=== PATIENT | male | born 1980 | race Caucasian/White ===

== ENCOUNTER 2020-06-04 07:34 | Emergency (ER) | payer OTHER ==
[2020-06-04] MEDS ORDERED: ONDANSETRON 4 MG/2 ML VIAL IVP STA (07:55)
[2020-06-04] MEDS ORDERED: SODIUM CHLORIDE 0.9% 1,000 ML IV STA (07:55)
[2020-06-04 08:18] LABS: BASOPHILS # (AUTO) 0.1 10^3/uL (0.0-0.1); EOSINOPHILS # (AUTO) 0.3 10^3/uL (0.0-0.7); EOSINOPHILS % (AUTO) 3.2 %; HGB - HEMOGLOBIN 14.5 g/dL (14.0-18.0); LYMPHOCYTES # (AUTO) 2.1 10^3/uL (1.5-3.5); LYMPHOCYTES % (AUTO) 21.6 %; MEAN CORPUSCULAR HEMOGLOBIN 31.8 pg (27.0-31.0); MEAN CORPUSCULAR HGB CONC 32.4 g/dL (32.0-36.0); MEAN PLATELET VOLUME 9.8 fL (7.4-11.4); MONOCYTES % (AUTO) 9.9 %; NEUTROPHILS # (AUTO) 6.3 10^3/uL (1.5-6.6); NEUTROPHILS % (AUTO) 63.7 %; PLT - PLATELET COUNT 216 10^3/uL (130-450); RED BLOOD COUNT 4.56 10^6/uL (4.70-6.10); RED CELL DISTRIBUTION WIDTH 13.3 % (12.0-15.0); WHITE BLOOD COUNT 9.9 x10^3/uL (4.8-10.8)
[2020-06-04 08:31] LABS: ALBUMIN 4.5 g/dL (3.2-5.5); ALBUMIN/GLOBULIN RATIO 1.6 (1.0-2.2); BILIRUBIN,TOTAL 0.4 mg/dL (0.2-1.0); CALCIUM 9.2 mg/dL (8.5-10.3); CREATININE 0.7 mg/dL (0.6-1.2); TOTAL PROTEIN 7.4 g/dL (6.7-8.2)
--- NOTE | 2020-06-04 08:36 | ED Physician Documentation ---
PD HPI NVD - Stated complaint Stated Complaint: VOMITING - Chief complaint Chief Complaint: Abd Pain - History obtained from History obtained from: Patient - History of Present Illness Timing - onset: Enter time (0200) Timing - duration: Hours Timing - details: Abrupt onset, Still present Associated symptoms: No: Fever, Abdominal pain, Chest pain Contributing factors: Bad food (suspected tomato soup and grilled cheese). No: Sick contact Improved by: Laying still, Vomiting Similar symptoms before: Has not had sx before Recently seen: Not recently seen - Additonal information Additional information: Previously well 39-year-old male was in his quarters last night when he began to get ill with nausea vomiting and then eventually diarrhea. He has been up all night with vomiting he said violent vomiting he had tomato soup and grilled cheese last night for dinner he ate alone and developed illness within hours. Review of Systems Constitutional: denies: Fever, Chills, Myalgias Eyes: denies: Decreased vision Ears: denies: Ear pain Nose: denies: Rhinorrhea / runny nose, Congestion Throat: denies: Sore throat Cardiac: denies: Chest pain / pressure Respiratory: denies: Dyspnea, Cough GI: reports: Nausea, Vomiting, Diarrhea. denies: Abdominal Pain : denies: Dysuria, Frequency PD PAST MEDICAL HISTORY - Past Medical History Past Medical History: Yes Psych: Anxiety - Past Surgical History Past Surgical History: No - Present Medications Home Medications: Ambulatory Orders Medication Instructions Recorded Confirmed Escitalopram [Lexapro] 1 tab PO DAILY 06/04/20 06/04/20 Gabapentin [Neurontin] 1 tab PO DAILY 06/04/20 06/04/20 Ondansetron Odt [Zofran] 4 mg TL Q6H PRN #10 tablet 06/04/20 traZODone [Desyrel] 1 tab PO DAILY PM PRN 06/04/20 06/04/20 - Allergies Allergies/Adverse Reactions: Allergies Allergy/AdvReac Type Severity Reaction Status Date / Time No Known Drug Allergies Allergy Verified 06/04/20 07:47 - Social History Does the pt smoke?: No Smoking Status: Never smoker PD ED PE NORMAL - Vitals Vital signs reviewed: Yes (hypertensive) - General General: Alert and oriented X 3, No acute distress, Well developed/nourished - HEENT HEENT: Atraumatic, PERRL, EOMI - Neck Neck: Supple, no meningeal sign, No bony TTP - Cardiac Cardiac: RRR, No murmur - Respiratory Respiratory: No respiratory distress, Clear bilaterally - Abdomen Abdomen: Normal bowel sounds, Soft, Non tender, Non distended, No organomegaly - Back Back: No CVA TTP, No spinal TTP - Derm Derm: Normal color, Warm and dry, No rash - Extremities Extremities: No deformity, No edema - Neuro Neuro: Alert and oriented X 3, exterior designer 2-12 intact, No motor deficit, No sensory deficit, Normal speech Eye Opening: Spontaneous Motor: Obeys Commands Verbal: Oriented GCS Score: 15 - Psych Psych: Normal mood, Normal affect Results - Vitals Vitals: Vital Signs - 24 hr 06/04/20 07:45 Temperature 36.3 C L Heart Rate 77 Respiratory 18 Rate Blood Pressure 138/67 H O2 Saturation 95 Oxygen O2 Source Room air - Labs Labs: Laboratory Tests 06/04/20 06/04/20 08:07 08:07 WBC 9.9 RBC 4.56 L Hgb 14.5 Hct 44.7 MCV 98.0 H MCH 31.8 H MCHC 32.4 RDW 13.3 Plt Count 216 MPV 9.8 Neut # (Auto) 6.3 Lymph # (Auto) 2.1 [place] # (Auto) 1.0 Eos # (Auto) 0.3 Baso # (Auto) 0.1 Absolute Nucleated RBC 0.00 Nucleated RBC % 0.0 Sodium 139 Potassium 4.1 Chloride 105 Carbon Dioxide 24 Anion Gap 10.0 BUN 12 Creatinine 0.7 Estimated GFR (MDRD) 127 Glucose 107 H Calcium 9.2 Total Bilirubin 0.4 AST 35 ALT 46 Alkaline Phosphatase 58 Total Protein 7.4 Albumin 4.5 Globulin 2.9 Albumin/Globulin Ratio 1.6 Lipase 28 PD MEDICAL DECISION MAKING - ED course Complexity details: reviewed results, re-evaluated patient, considered differential, d/w patient ED course: 39-year-old male with acute onset of nausea vomiting diarrhea appears to have some food poisoning he has had a violent illness and feels much improved after administration of Zofran and a liter of saline. He is given his usual morning dose of gabapentin we will provide some Zofran and a note for work for 2 days. Departure - Departure Disposition: 01 Home, Self Care Clinical Impression: Gastroenteritis Condition: Stable Instructions: ED Gastroenteritis Vs Food Poison Follow-Up: [facility] [Provider Group] Prescriptions: Ondansetron Odt [Zofran] 4 mg TL Q6H PRN #10 tablet PRN Reason: Nausea / Vomiting Forms: Activity restrictions
[2020-06-04] MEDS ORDERED: GABAPENTIN 100 MG CAPSULE PO STA (08:39)
[2020-06-04 08:49] VITALS: BP 131/72
== END 2020-06-04 08:49 | disposition home or self-care (01) ==
LOC: ED 07:34
DX: K52.9 Noninfective gastroenteritis and colitis, unspecified (principal)
CPT/HCPCS: 36415; 80053; 83690; 85025; 96374; 99283; 99284; A9270

== ENCOUNTER 2020-08-29 12:46 | Outpatient (CLI) | payer OTHER ==
[2020-08-29 13:42] VITALS: BP 130/80
--- NOTE | 2020-08-29 13:42 | SLEEP CARE CONSULTATION ---
Information from patient questionnaire entered by Conchis Warren. I have reviewed and concur with the information entered by Conchis Warren. This document represents the service I personally performed and the decisions made by me, Susy Camacho ARNP. History of Present Illness Service Date and Time: 08/29/2020 1246 Reason for Visit: New patient Chief Complaint: reports: Unrefreshed sleep, Snoring, Excessive daytime sleepiness, Frequent awakenings at night. denies: Observed pauses in breathing Date of Onset: 3-5 years Usual bedtime: 9 PM Time it takes to fall asleep: 2-3 hours Snores at night: Yes Observed to quit breathing while asleep: Yes Sleeps alone due to snoring: No (N/A) Number of times waking at night: 5-10 Reasons for waking at night: reports: Choking, Snoring, Gasping for air Toss, Turn, or Twitch while sleeping: Yes Recalls having dreams: Yes Usually gets out of bed at: 0430; weekends 0800 Feels refreshed in the morning: No Morning headache: No Sleepy or fatigued during the day: Yes Ever fallen asleep while driving: No (drowsy driving, no accidents) Takes day naps: Yes (once a month) Dreams during day naps: No Prior sleep studies: No Additional HPI information: I had the pleasure of seeing GIANNA FARIAS today regarding the possibility of him having a sleep disorder. His current complaints are snoring, unrefreshed sleep and excessive daytime sleepiness. He states in the last 3-5 years he has progressively been having more trouble with sleep. He is not waking up rested and very sleepy during the day. He wakes up between 5-10 times a night and has woke up choking and gasping for air. He has been told by his roommates that he snores very loudly but none have told him he has pauses in breathing. He has no family history of sleep apnea. - Parasomnia Symptoms Ever been unable to move upon waking from sleep: No Walks in sleep: No Talks in sleep: No Ever acted out dreams in sleep: Yes Ever felt weak in the knees when startled or emotional: No Bothered by creepy, crawly, restless sensations in legs: Yes (anytime during the day or night) Problems with memory or concentration: No Subjective Initial [place] Sleepiness Scale score: 15 (in 2020) Past Medical History Past Medical History: reports: Anxiety, Depression Social History The patient's occupation is in [employer] in the [employer]. Patient is Single and lives in [place]. Have you smoked in the past 12 months: Yes Cigarettes per day (20/pack): 20 Years of smokin Smoking Pack Years: 20.0 Alcohol use: Yes Alcohol amount and frequency: 2-4, 2-3 times weekly Caffeine use: Yes Caffeine amount and frequency: 1 cup of coffee in the AM Family History Family history of sleep disordered breathing: No Allergies and Home Medications Drug allergies reviewed: Yes (NKDA) Home medication list reviewed: Yes Allergy and home medication list: Trazadone Gabapentin Lexapro Review of Systems Cardiovascular: denies: high blood pressure Gastrointestinal: denies: heartburn Neurological: reports: headaches. denies: head trauma Psychiatric: reports: anxiety, depression Ear/Nose/Throat: reports: nasal congestion, dry mouth/throat, injury to nose, wisdom teeth removed. denies: tonsillectomy Endocrine: reports: sluggishness (tired), excessive thirst Musculoskeletal: reports: back pain Immunologic: reports: sneezing (runny nose), itching Physical Exam Blood Pressure: 130/80 Cuff size: wrist Heart Rate: 81 O2 Saturation: 99 Height: 6 ft 2 in Weight: 204 lb Body Mass Index: 26.2 BMI Classification: Overweight Neck circumference: 16.25 (inches) Nostrils: partially obstructed Mouth and throat: narrow oropharynx Soft palate: long Hard palate: normal Uvula: long Uvula visualization: 50% Mallampati Class II Tongue: normal in size Tonsils: 1+ Chin and jaw: normal size and position Neck: normal w/o lymphadenopathy or thyromegaly Heart: regular rate and rhythm Lungs: clear bilaterally Impression and Plan 1. Suspected Obstructive Sleep Apnea-Hypopnea Syndrome, as suggested by a history of loud and irregular snoring, gasping or choking in sleep, frequent awakening during the night, unrefreshed sleep, and excessive daytime sleepiness. Narrow oropharynx and obesity are common predisposing factors for obstructive sleep apnea-hypopnea syndrome. I recommend proceeding to polysomnography to confirm the diagnosis and to assess severity. If the patient has significant sleep disordered breathing, a manual CPAP titration study will also be performed to find the optimal treatment pressure. I informed the patient of what the sleep studies involve and after some discussion, obtained agreement to proceed. The pathophysiology of obstructive sleep apnea-hypopnea syndrome was discussed with the patient and health risks of cardiovascular and cerebrovascular disease if not treated. Risks of drowsy driving discussed in detail and patient advised to avoid long distance driving and to chute puller at the first sign of drowsiness. Patient agreed to plan. * Schedule polysomnography +- manual CPAP titration study and return in 1-2 weeks after the study to discuss result and initiate therapy. * Avoid long distance driving or driving when feeling sleepy. * Avoid alcohol, sedative and muscle relaxant around bedtime. * Attempt to lose weight. * Review instructions provided by trained office staff on how to prepare for the sleep study. * Return for follow-up after sleep study completed. Counseling Topics: Weight loss health impact Visit Type: In Office Time Spent with Patient (minutes): 30 Provider Statement: I spent 100% of the Face to Face Visit with the patient with greater than 50% spent counseling the patient and coordination of care.
== END 2020-08-29 12:47 | disposition home or self-care (01) ==
LOC: SC 12:46
PROVIDERS: ATTEND Nurse Practitioner Family
DX: R06.83 Snoring (principal); G47.8 Other sleep disorders; G47.10 Hypersomnia, unspecified; F17.210 Nicotine dependence, cigarettes, uncomplicated; E66.3 Overweight; Z68.26 Body mass index [BMI] 26.0-26.9, adult
CPT/HCPCS: 99203; 99212

== ENCOUNTER 2020-08-30 14:14 | Emergency (ER) | payer OTHER ==
[2020-08-30 14:21] VITALS: BP 143/80
--- NOTE | 2020-08-30 14:33 | ED Physician Documentation ---
History of Present Illness - Stated complaint Stated Complaint: VACCINE REACTION - Chief complaint Chief Complaint: Allergic Rx - History obtained from History obtained from: Patient - Additonal information Additional information: 1st Dose Razo vaccine approximately 9 AM today. Around 1:30 PM he developed throat tingling and soreness and loss of taste. No rash, throat swelling, body aches, or fever. Review of Systems Constitutional: denies: Fever, Chills Nose: denies: Rhinorrhea / runny nose Throat: reports: Sore throat Respiratory: denies: Dyspnea, Cough PD PAST MEDICAL HISTORY - Past Medical History Psych: Anxiety - Past Surgical History Past Surgical History: No - Present Medications Home Medications: Ambulatory Orders Medication Instructions Recorded Confirmed Escitalopram [Lexapro] 1 tab PO DAILY 06/04/20 06/04/20 Gabapentin [Neurontin] 1 tab PO DAILY 06/04/20 06/04/20 Ondansetron Odt [Zofran] 4 mg TL Q6H PRN #10 tablet 06/04/20 traZODone [Desyrel] 1 tab PO DAILY PM PRN 06/04/20 06/04/20 - Allergies Allergies/Adverse Reactions: Allergies Allergy/AdvReac Type Severity Reaction Status Date / Time vinegar Allergy Hives Uncoded 08/30/20 14:21 - Social History Does the pt smoke?: No Smoking Status: Never smoker PD ED PE NORMAL - Vitals Vital signs reviewed: Yes - General General: Alert and oriented X 3, No acute distress - HEENT HEENT: Other (red tonsillar pillars and uvula, no edema) - Neck Neck: No bony TTP - Derm Derm: Normal color, Warm and dry, No rash - Neuro Neuro: Alert and oriented X 3, Normal speech Results - Vitals Vitals: Vital Signs - 24 hr 08/30/20 14:17 Temperature 36.9 C Heart Rate 84 Respiratory 16 Rate Blood Pressure 143/80 H O2 Saturation 97 Oxygen O2 Source Room air - Labs Labs: Laboratory Tests 08/30/20 14:30 Group A Strep Rapid Negative PD MEDICAL DECISION MAKING - ED course ED course: I don't think his symptoms are related to the vaccine, will test for Covid and strep. Departure - Departure Disposition: 01 Home, Self Care Clinical Impression: Loss of taste Pharyngitis Qualifiers: Pharyngitis/tonsillitis etiology: unspecified etiology Qualified Code(s): J02.9 - Acute pharyngitis, unspecified Condition: Stable Record reviewed to determine appropriate education?: Yes Instructions: ED Pharyngitis Viral Report Pending Comments: Unlikely for your current symptoms to be related to the vaccine. We will call if strep or Covid testing is positive, but need to quarantine until results are negative. You have a Covid test pending. You need to self quarantine until the result is done and negative. Do not leave your house. Do not get near anybody. The results should be done in 48 to 72 hours. We will call with a positive result, the fastest way to get a negative result for confirmation though is to go to the hospital website at [email or web address], click on the my [facility] tab and sign up for the patient portal. If any friends or family get sick and would like to have a Covid test done, but do not have signs or symptoms that would necessitate being hospitalized, we encourage testing through our coronavirus swabbing station, call [phone] to schedule an appointment. Forms: Activity restrictions Discharge Date/Time: 08/30/20 14:42
[2020-08-30 14:51] LABS: RAPID STREP SCREEN Negative (Negative)
== END 2020-08-30 14:42 | disposition home or self-care (01) ==
LOC: ED 14:14
DX: J02.9 Acute pharyngitis, unspecified (principal); R43.9 Unspecified disturbances of smell and taste; Z20.822 Contact with and (suspected) exposure to COVID-19
CPT/HCPCS: 87070; 87430; 99283; 99284

== ENCOUNTER 2020-09-12 13:51 | Outpatient (CLI) | payer OTHER ==
--- OUTSIDE RECORDS SUMMARY | 2020-09-18 23:59 | EXTERNAL MEDICAL SUMMARY RPT | Continuity of Care Document ---
:1980 Demographics Phone Unavailable Preferred Language Unknown Marital Status Unknown [employer] Affiliation Unknown Race Unknown Ethnic Group Unknown Author Organization [facility] Address [address] [place] [address] Phone Social History date description facility [phone]
== END 2020-09-12 13:52 | disposition home or self-care (01) ==
LOC: SC 13:51
PROVIDERS: ATTEND Nurse Practitioner Family
DX: G47.33 Obstructive sleep apnea (adult) (pediatric) (principal); R09.02 Hypoxemia
CPT/HCPCS: 95806

== ENCOUNTER 2020-09-28 13:29 | Outpatient (CLI) | payer OTHER ==
--- NOTE | 2020-09-28 13:50 | SLEEP CARE CONSULTATION ---
Information from patient questionnaire entered by Conchis Warren. I have reviewed and concur with the information entered by Conchis Warren. This document represents the service I personally performed and the decisions made by me, Susy Camacho ARNP. History of Present Illness Service Date and Time: 09/28/2020 1329 Initial [place] Sleepiness Scale score: 15 (in 2020) Current [place] Sleepiness Scale score: 10 Additional HPI information: GIANNA FARIAS returns for follow up and results of the recently performed home sleep study. Patient has moderate obstructive sleep apnea with an AHI 16.1 and moderate hypoxemia with a yareli oxygen saturation of 78%. I explained the pathophysiology behind obstructive sleep apnea. We then spent quite a bit of time discussing different treatment options. For mild obstructive sleep apnea, surgery and oral appliance are alternatives to nasal CPAP therapy but in moderate or severe cases, nasal CPAP is the most effective and reliable treatment. Because apnea is primarily in supine position, then positional management therapy could be effective. Methods discussed such as positioning with pillows, using a T-shirt with tennis balls in the back, and shown commercial products that have a pillow format on back to prevent supine sleep. I reviewed the impact of weight changes on sleep apnea and strongly recommended losing weight. After some discussion, the patient opted to go with the nasal CPAP therapy. Nasal autoCPAP set at 4-15 cmH20 will be ordered with rationale explained. A manual titration study will be ordered if unable to find optimal pressure with office adjustments. I explained how CPAP machine works with sample devices Respironics Dreamstation and ResMed [id number] and what to expect when using the machine. Using CPAP every night in order to get used to it was emphasized. Patient advised to put CPAP mask on before getting into bed so as not to fall asleep without CPAP. To assist acclimation to CPAP use, it could also be used for a short time during day while reading or watching TV. The patient was instructed to call the CPAP supplier to discuss any mechanical problem that may occur. If the mask given is uncomfortable or is difficult to keep on through the night even with adjustment, contact the CPAP supplier as many will replace with another mask style if notified before 30 days. If snoring or perceives is not getting enough air or too much air from the machine, notify this office. AASM patient education PAP tips reviewed and given to patient. Patient counseled not drink alcohol less than 4 hours before bedtime as it can increase snoring and apnea. Patient was cautioned about risks of drowsy driving until sleepiness symptoms resolve. Sleep Study - Results Type of Sleep Study: Home sleep study Prior sleep studies: No Polysomnography/Home Sleep Study results: Physician Impression: The quality of the study is fair due to partial loss of airflow signal.. The length of the study is adequate (> 240 minutes). Please also see the tabulated and graphic data. 1. Obstructive Sleep Apnea-Hypopnea (ICD-10 G47.33), moderate, with an AHI of 16.1/hr and yareli SaO2 of 78%. During the study, the patient had 82 apneas (81 obstructive, 0 central, 1 mixed) and 30 hypopneas. The longest episode lasted 119.5 seconds. The respiratory events occurred almost exclusively during supine sleep (supine AHI was 21.1 and non-supine, 2.66). 2. Hypoxemia (ICD-10 R09.02), moderate, with the lowest oxygen saturation of 78 % and 193.6 minutes with SaO2 under 90%. Baseline oxygen saturation was normal (Average oxygen saturation was 90%). Allergies and Home Medications Home medication list reviewed: Yes (Viagra, just got today) Review of Systems Review of systems same as previous: No (impotence) Physical Exam Heart Rate: 77 O2 Saturation: 98 Height: 6 ft 2 in Weight: 205 lb Body Mass Index: 26.3 BMI Classification: Overweight Impression and Plan 1. Obstructive Sleep Apnea-Hypopnea Syndrome, moderate, with lowest oxygen saturation of 78%. Obviously this is the cause of the patients symptoms of unrefreshed sleep, and excessive daytime sleepiness. Positive pressure therapy could benefit anxiety and depression. As mentioned above, the patient will be st arted on nasal autoCPAP therapy with pressure set at 4-15 cmH2O. Compliance guidelines also reviewed. A copy of compliance guidelines will be given for reference at check out. Because the apnea is more severe supine, I instructed to avoid sleeping supine using pillow positioning until able to start CPAP use. 2. Hypoxemia, moderate, with the lowest oxygen saturation of 78 % and 193.6 minutes with SaO2 under 90%. His baseline oxygen saturation was normal with an average oxygen saturation at 90%. * Nasal auto CPAP therapy, pressure at 4-15 cm H2O. * Attempt to lose weight. * Avoid alcohol consumption near bedtime. * Avoid supine sleep until using CPAP. * The patient is again cautioned about driving until sleepiness completely resolves. * Return one month after CPAP obtained. I will assess response to therapy and compliance at that time. Counseling Topics: Weight loss health impact Visit Type: In Office Time Spent with Patient (minutes): 17 Provider Statement: I spent 100% of the Face to Face Visit with the patient with greater than 50% spent counseling the patient and coordination of care.
== END 2020-09-28 13:30 | disposition home or self-care (01) ==
LOC: SC 13:29
PROVIDERS: ATTEND Nurse Practitioner Family
DX: G47.33 Obstructive sleep apnea (adult) (pediatric) (principal); R09.02 Hypoxemia; E66.3 Overweight; Z68.26 Body mass index [BMI] 26.0-26.9, adult
CPT/HCPCS: 99212

== ENCOUNTER 2020-11-27 16:29 | Outpatient (CLI) | payer OTHER ==
--- NOTE | 2020-11-27 16:55 | SLEEP CARE CONSULTATION ---
Information from patient questionnaire entered by Conchis Warren. I have reviewed and concur with the information entered by Conchis Warren. This document represents the service I personally performed and the decisions made by , Susy Camacho ARNP. History of Present Illness Service Date and Time: 11/27/2020 1629 Previous diagnosis: Moderate, Obstructive Sleep Apnea-Hypopnea Syndrome AHI: 16.1 Reason for follow up: first compliance (Set up 10/26/20) Equipment type: CPAP Equipment obtained from: Other ([facility]; got inital supplies) Mask style: Full face Mask brand: Respironics Backup mask available: No (will keep old mask when replaced) Last cushion change: 1 month Prior sleep studies: No Year and Where: 2020 [facility] Type of Sleep Study: Home sleep study HPI additional information: GIANNA FARIAS was diagnosed to have moderate, AHI 16.1, obstructive sleep apnea- hypopnea syndrome and returned today for CPAP therapy first compliance follow- up. CPAP Compliance Data - Data Reviewed with Patient Average duration of nightly device use: 5 h 27 min Compliance rate %: 67 Current pressure setting (cmH2O): 4-15 (median 9.0, avg 12.2, max 13.4) Average residual AHI: 2.7 Subjective Missed days of use due to: reports: other (camping trips) Patient concerns: reports: air blowing in eyes, dry mouth, nose, throat (dry mouth). denies: aerophagia, mask discomfort, mask leak noise, condensation in mask/hose, nasal congestion, epistaxis, other Observed to snore while using device: No Current pressure setting perceived as: comfortable On therapy, patient: reports: sleeping better, awakening more refreshed, being more awake and alert during the day, more rested overall. denies: drowsiness while driving Initial [place] Sleepiness Scale score: 15 (in 2020) Current [place] Sleepiness Scale score: 7 Allergies and Home Medications Home medication list reviewed: Yes (Ritalin) Review of Systems Review of systems same as previous: No (ADHD) Physical Exam Heart Rate: 76 O2 Saturation: 97 Height: 6 ft 2 in Weight: 209 lb Body Mass Index: 26.8 BMI Classification: Overweight Impression and Plan 1. Obstructive Sleep Apnea-Hypopnea Syndrome, moderate, with fair treatment compliance and good apnea control. On CPAP therapy, the patient has better sleep quality and is more rested overall. I will adjust pressure to reflect the pressures being used to take 12 to 14 cm of water. He was encouraged to call the office if that pressure should be uncomfortable or if he should develop aerophagia. Patient is moving/transferring to [facility] for the next 2 years. He w as encouraged to follow-up there within 6 months with a sleep provider to see how he is doing and check his compliance. Patient has had some mouth dryness. Oral dryness can be reduced by adjusting humidity setting higher or heated hose lower or by adjusting both settings. Verbal instructions given on how to change humidity and heated hose settings with rationale explaining why to change. He voiced understanding and agreement with this plan of care. Patient's apnea severity and rationale for treatment to reduce apnea, improve sleep quality and reduce cardiovascular and cerebrovascular events was reviewed. I also reviewed the benefit of consistent device use of CPAP for depression/anxiety and ADHD. * Change auto CPAP pressure to 12-14 cmH2O * Notify me if snoring with mask or feeling that the pressure is too much or too little * Attempt to lose weight * Call this office if any problems using CPAP * Return for follow up in 1-2 months, or sooner if concerns arise Counseling Topics: Spare mask, Weight loss health impact Visit Type: In Office Time Spent with Patient (minutes): 17 Provider Statement: I spent 100% of the Face to Face Visit with the patient with greater than 50% spent counseling the patient and coordination of care.
== END 2020-11-27 16:30 | disposition home or self-care (01) ==
LOC: SC 16:29
PROVIDERS: ATTEND Nurse Practitioner Family
DX: G47.33 Obstructive sleep apnea (adult) (pediatric) (principal); E66.3 Overweight; Z68.26 Body mass index [BMI] 26.0-26.9, adult
CPT/HCPCS: 99212